=== PATIENT | male | born 1980 | race African-American/Black ===

== ENCOUNTER 2019-10-18 12:57 | Emergency (ER) | payer MEDICAID ==
[~2019-10-18] VITALS: Ht 180.3 cm; Wt 82.0 kg
[2019-10-18 13:02] VITALS: BP 132/92
== END 2019-10-18 14:24 | disposition home or self-care (01) ==
LOC: ER 12:57
DX: G40.909 Epilepsy, unspecified, not intractable, without status epilepticus (principal); F12.10 Cannabis abuse, uncomplicated; Z76.0 Encounter for issue of repeat prescription; Z98.890 Other specified postprocedural states
CPT/HCPCS: 99283

== ENCOUNTER 2022-05-30 15:15 | Emergency (ER) | payer MEDICAID ==
[~2022-05-30] VITALS: Ht 165.1 cm; Wt 75.0 kg
[2022-05-30 15:19] VITALS: BP 175/94
[2022-05-30] MEDS ORDERED: DIVA-18 MT (15:59)
== END 2022-05-30 16:18 | disposition home or self-care (01) ==
LOC: ER 15:15
DX: Z76.0 Encounter for issue of repeat prescription (principal); Z86.59 Personal history of other mental and behavioral disorders
CPT/HCPCS: 99281

== ENCOUNTER 2022-08-02 17:51 | Emergency (ER) | payer MEDICAID ==
[~2022-08-02] VITALS: Ht 177.8 cm; Wt 72.0 kg
[~2022-08-02 17:51] MED LIST: DIVA-18 MT
[2022-08-02 17:53] VITALS: BP 145/86
[2022-08-02] MEDS ORDERED: DIVA-18 MT (19:08)
[2022-08-02] MEDS ORDERED: DIVALPROEX SODIUM 250MG ER TABLET PO ONE (19:15)
== END 2022-08-02 19:24 | disposition home or self-care (01) ==
LOC: ER 17:51
DX: R56.9 Unspecified convulsions (principal); Z76.0 Encounter for issue of repeat prescription
CPT/HCPCS: 99281; Z7610